=== PATIENT | female | born 1985 | race Caucasian/White ===

== ENCOUNTER 2017-10-13 00:10 | Emergency (ER) | payer OTHER ==
[~2017-10-13] VITALS: Ht 177.8 cm; Wt 142.3 kg
[~2017-10-13 00:10] MED LIST: FLONASE16 G1 BOTH NARES; LIDODERM 5% P1 PATCH TD; MEDROL DOSEPAK4 MG PO; MOTRIN600 MG PO; NORCO 5/3251 TABLET PO
[2017-10-13 00:50] LABS: HEMATOCRIT 38.5 % (36.0-46.0); HEMOGLOBIN 12.7 G/DL (11.9-15.5); MCV 87.9 FL (83-99); PLATELET COUNT 210 K/uL (156-360); RBC DIS.WIDTH-CV 14.3 % (11.8-14.6); RBC DIS.WIDTH-SD 46.1 % (39-53); RED BLOOD COUNT 4.38 M/uL (3.80-5.20)
[2017-10-13 00:58] LABS: CHLORIDE 106 mEq/L (99-109); POTASSIUM 3.9 mEq/L (3.7-5.4); SODIUM 142 mEq/L (136-147)
[2017-10-13 01:00] LABS: GLUCOSE 135 mg/dL (70-99)
[2017-10-13 01:04] LABS: CREATININE 0.8 mg/dL (0.6-1.3); GFR ESTIMATE (CALCULATED) > 59 mL/min/
[2017-10-13 01:05] LABS: UREA NITROGEN (BUN) 10 mg/dL (9-23)
[2017-10-13 01:14] VITALS: BP 137/68
== END 2017-10-13 01:14 | disposition home or self-care (01) ==
LOC: EME 00:10
PROVIDERS: Emergency Medicine
DX: I83.891 Varicose veins of right lower extremity with other complications (principal); Z88.0 Allergy status to penicillin; Z88.1 Allergy status to other antibiotic agents; Z88.8 Allergy status to other drugs, medicaments and biological substances
CPT/HCPCS: 80048; 85027; 99281; 99284